=== PATIENT | male | born 1995 | race Two or more races ===

== ENCOUNTER 2018-01-16 19:12 | Emergency (ER) | payer OTHER ==
[~2018-01-16] VITALS: Ht 175.3 cm; Wt 81.0 kg
[2018-01-16 19:25] VITALS: BP 122/56
== END 2018-01-17 01:40 | disposition left against medical advice (07) ==
LOC: ER 19:12
DX: Z53.21 Procedure and treatment not carried out due to patient leaving prior to being seen by health care provider (principal)